=== PATIENT | male | born 1965 | race Caucasian/White ===

== ENCOUNTER 2017-09-25 12:46 | Emergency (ER) | payer OTHER ==
[~2017-09-25] VITALS: Ht 172.7 cm; Wt 63.0 kg
[2017-09-25 12:50] VITALS: BP 141/82; PULSE 77; RESP 16; TEMP 98.5; O2SAT 99
[2017-09-25] MEDS ORDERED: LISI10TA3 PO (12:53)
--- NOTE | 2017-09-25 13:53 | RADRPT ---
EXAM DATE/TIME: 09/25/2017 13:33 [place] COMPARISON: No previous studies available for comparison. INDICATIONS : Left 4th digit pain & swelling at the proximal interphanangeal joint with abscess after being stuck by a thorn under ring. MEDICAL HISTORY : Hypertension. Gastroesophageal reflux disease. SURGICAL HISTORY : Hernia repair. ENCOUNTER: Initial ACUITY: 2 months PAIN SCORE: 5/10 LOCATION: Left hand FINDINGS: Examination of the fourth digit of the left hand demonstrates no evidence of fracture or dislocation. No radiopaque foreign bodies are seen. Marked soft tissue swelling of the fourth PIP joint without foreign body. Small metallic shard overlies the third PIP CONCLUSION: Soft tissue thickening of the fourth PIP joint. No acute bony fracture seen. Ebenezer Cole MD on September 25, 2017 at 13:51 Board Certified Radiologist. This report was verified electronically.
[2017-09-25] MEDS ORDERED: CIPR-9 PO (14:05)
[2017-09-25] MEDS ORDERED: CLIN300C5 PO (14:05)
--- NOTE | 2017-09-25 14:06 | PD ---
HPI Chief Complaint: Skin Problem Time Seen by Provider: 13:02 Travel History International Travel<30 days: No Contact w/Intl Traveler<30days: No Traveled to known affect area: No History of Present Illness HPI 52-year-old male with left fourth digit pain and swelling. He reports he had a puncture wound to the finger caused by a branch over a month ago. The area has been mildly painful since. Over the last several days the area became red and swollen and small amount of pus draining from a scab near the medial aspect of the IP joint. No altered sensation or decreased range of motion. No fevers or chills. Symptom severity is moderate. He describes throbbing type pain in the finger. Pain is aggravated by palpation of the area. [facility] Past Medical History Cardiovascular Problems: Yes (HTN ) GERD: Yes Hepatitis: Yes (C) Hypertension: Yes Tetanus Vaccination: < 5 Years Influenza Vaccination: No Past Surgical History Abdominal Surgery: Yes (Hernia repair ) Social History Alcohol Use: Yes (Occ.) Tobacco Use: No Substance Use: No Allergies-Medications (Allergen,Severity, Reaction): Coded Allergies: No Known Allergies (Unverified , 09/25/17) Reported Meds & Prescriptions Reported Meds & Active Scripts Active Reported Lisinopril 10 Mg Tab 10 Mg PO DAILY Review of Systems Except as stated in HPI: all other systems reviewed are Neg General / Constitutional: No: Fever Eyes: No: Visual changes HENT: No: Headaches Cardiovascular: No: Chest Pain or Discomfort Respiratory: No: Shortness of Breath Gastrointestinal: No: Abdominal Pain Genitourinary: No: Dysuria Physical Exam Narrative GENERAL: Alert and well-appearing 52-year-old male SKIN: Warm and dry. HEAD: Normocephalic. EYES: No injection or drainage. NECK: Supple CARDIOVASCULAR: Regular rate and rhythm RESPIRATORY: Breath sounds equal bilaterally. No accessory muscle use. GASTROINTESTINAL: Abdomen soft, non-tender, nondistended. MUSCULOSKELETAL: No cyanosis. Left hand: Notable swelling and erythema to fourth digit. Small scab to the medial aspect of the mid phalanx. No drainage. Small amount of fluctuance. Patient is able to flex and extend the finger. Normal sensation. Brisk cap refill. Data Data Last Documented VS Vital Signs Date Time Temp Pulse Resp B/P (MAP) Pulse Ox O2 Delivery O2 Flow Rate FiO2 09/25/17 12:50 98.5 77 16 141/82 (101) 99 Orders Orders Finger ([id number]) (09/25/17 ) MDM Medical Decision Making Medical Screen Exam Complete: Yes Emergency Medical Condition: Yes Differential Diagnosis Abscess, cellulitis, retained foreign body, infectious tenosynovitis Narrative Course 52-year-old male here with abscess/cellulitis to the left fourth digit. He reports a puncture wound by the sharp edge of a plant 1 month prior. No fever chills. He has full range of motion of the finger. X-ray was negative for foreign body. Incision and drainage performed. Patient will be put on clindamycin and Cipro to cover Pseudomonas due to puncture wound by possible wood object. He is to follow-up with on-call hand surgeon this week for recheck. He verbalizes understanding and agrees to plan Procedures Procedure Narrative INCISION AND DRAINAGE OF ABSCESS: The area was prepped and was sterilely draped. A subcutaneous wheal of 1 % plain lidocaine was used to anesthetize the area properly. A number 11 scalpel was used to make a 3 -mm incision across the area of the abscess. The abscess was drained, complex loculations were broken down, and irrigated with normal saline. Sterile dressing applied. Diagnosis Primary Impression: Abscess of finger Qualified Codes: L02.512 - Cutaneous abscess of left hand Referrals: Ada Marinelli MD Hand Surgeon Additional Instructions: Antibiotics as directed. Epson salt soaks as directed. Follow-up with hand surgeon for recheck. Return if you develop new or worsening symptoms Scripts Ciprofloxacin (Cipro) 500 Mg Tab 500 MG PO BID for Infection for 10 Days, #20 TAB 0 Refills Prov: Norma Carreno 09/25/17 Clindamycin (Clindamycin) 300 Mg Cap 300 MG PO Q6H for Infection for 10 Days, #40 CAP 0 Refills Prov: Norma Carreno 09/25/17 Disposition: 01 DISCHARGE HOME Condition: Stable Norma Carreno Sep 25, 2017 14:06
== END 2017-09-25 14:25 | disposition home or self-care (01) ==
LOC: PHEFT 12:46
DX: L02.512 Cutaneous abscess of left hand (principal); I10 Essential (primary) hypertension
CPT/HCPCS: 10060; 73140